=== PATIENT | female | born 1970 | race Caucasian/White ===

== ENCOUNTER 2017-05-23 19:30 | Inpatient (IN) | payer MEDICAID, OTHER ==
[~2017-05-23] VITALS: Ht 165.1 cm; Wt 112.5 kg
[~2017-05-23 19:30] MED LIST: ABIL5 PO; ATOM40CA PO; BUPR300T52 PO; HYDR50CA PO; TRAZ150T78 PO
[2017-05-23] MEDS ORDERED: ONDANSETRON HCL 4MG/2ML VIAL IV STA (23:06)
[2017-05-23] MEDS ORDERED: SODIUM CHLORIDE 0.9% 1,000 ML IV ONE (23:06)
[2017-05-23] MEDS ORDERED: MORPHINE SULFATE 4 MG/ML CPJ (NOT FOR IM USE) IV ONE (23:15)
[2017-05-23 23:51] LABS: BASOPHILS % 0.4 % (0.0-2.0); EOSINOPHILS % 0.5 % (0.0-5.0); HEMOGLOBIN. 11.2 g/dL (12.0-16.0); LYMPHOCYTES % 10.9 % (20.0-50.0); MEAN CORPUSCULAR VOLUME 77.8 fL (81.0-99.0); MONOCYTES % 6.3 % (2.0-8.0); NEUTROPHILS % 81.9 % (40.0-76.0); PLATELET 382 x1000/uL (130-400); RED CELL DISTRIBUTION WIDTH 15.9 % (11.6-14.6)
[2017-05-23 23:57] LABS: CHLORIDE 101 mEq/L (98-107)
[2017-05-24 00:03] LABS: PROTHROMBIN TIME 10.4 sec (9.4-11.6)
[2017-05-24 00:06] LABS: CARBON DIOXIDE 29 mEq/L (21-32)
[2017-05-24] MEDS ORDERED: CEFTRIAXONE 1 G PREMIX 50 ML IV ONE (00:15)
[2017-05-24] MEDS ORDERED: METRONIDAZOLE 500 MG PREMIX 100 ML IV ONE (00:15)
[2017-05-24] MEDS ORDERED: MORPHINE SULFATE 4 MG/ML CPJ (NOT FOR IM USE) IV ONE ×2 (01:15→02:45)
[2017-05-24 01:21] LABS: CLARITY URINE CLEAR (CLEAR); COLOR URINE YELLOW (YELLOW); KETONES URINE NEGATIVE (NEGATIVE); LEUKOCYTE ESTERASE URINE 1+ (NEGATIVE); NITRITE URINE NEGATIVE (NEGATIVE); OCCULT BLOOD URINE NEGATIVE (NEGATIVE); PH URINE >=9.0 (4.5-8.0); PROTEIN URINE 1+ (NEGATIVE); SPECIFIC GRAVITY URINE 1.018 (1.005-1.030)
[2017-05-24] MEDS ORDERED: KETOROLAC 30MG/ML VIAL IV ONE (02:45)
[2017-05-24] MEDS ORDERED: ONDANSETRON HCL 4MG/2ML VIAL IV PRN (02:45)
[2017-05-24] MEDS ORDERED: ACETAMINOPHEN 650MG SUPP PR PRN (02:45)
[2017-05-24] MEDS ORDERED: IPRATROPIUM/ALBUTEROL 0.5-3(2.5)MG/3ML NEB INH PRN (02:45)
[2017-05-24] MEDS ORDERED: DIPHENHYDRAMINE 50MG/ML VIAL IV PRN (02:45)
[2017-05-24] MEDS ORDERED: CLONIDINE 0.1MG TABLET PO PRN (02:45)
[2017-05-24] MEDS ORDERED: MORPHINE SULFATE 4 MG/ML CPJ (NOT FOR IM USE) IV PRN (02:45)
[2017-05-24 04:00] VITALS: BP 125/60
[2017-05-24] MEDS ORDERED: DEXT 5%/0.45% NACL 1000ML 1,000 ML IV SCH (04:30)
[2017-05-24 08:00] VITALS: BP 117/72
[2017-05-24] MEDS: HYDROMORPHONE HCL/PF 2MG/ML CPJ IV PRN ×3 (10:28→22:47)
[2017-05-24 12:00] VITALS: BP 127/73
[2017-05-24 12:32] LABS: BASOPHILS % 0.6 % (0.0-2.0); EOSINOPHILS % 1.4 % (0.0-5.0); HEMATOCRIT. 30.7 % (36.0-48.0); HEMOGLOBIN. 9.9 g/dL (12.0-16.0); MEAN CORPUSCULAR HEMOGLOBIN 25.2 pg (28.0-32.0); MONOCYTES % 7.2 % (2.0-8.0); NEUTROPHILS % 75.8 % (40.0-76.0); PLATELET 306 x1000/uL (130-400); RED BLOOD CELL COUNT 3.93 mill/uL (4.2-5.4); RED CELL DISTRIBUTION WIDTH 15.7 % (11.6-14.6)
[2017-05-24 13:06] LABS: CARBON DIOXIDE 28 mEq/L (21-32); CHLORIDE 103 mEq/L (98-107)
[2017-05-24] MEDS: ARIPIPRAZOLE 5MG TABLET PO SCH (14:10)
[2017-05-24 16:00] VITALS: BP 114/58
[2017-05-24] MEDS ORDERED: POTASSIUM CHLORIDE 20MEQ TABLET SR PO NR (16:45)
[2017-05-24 20:00] VITALS: BP 119/52
[2017-05-25] VITALS: BP 126/59
[2017-05-25 04:00] VITALS: BP 117/57
[2017-05-25] MEDS: HYDROMORPHONE HCL/PF 2MG/ML CPJ IV PRN ×2 (04:45→10:33)
[2017-05-25 06:00] LABS: BASOPHILS % 0.5 % (0.0-2.0); EOSINOPHILS % 2.3 % (0.0-5.0); HEMOGLOBIN. 10.7 g/dL (12.0-16.0); LYMPHOCYTES % 20.8 % (20.0-50.0); MEAN CORPUSCULAR HEMOGLOBIN 25.6 pg (28.0-32.0); MEAN CORPUSCULAR VOLUME 78.7 fL (81.0-99.0); MEAN PLATELET VOLUME 7.5 fl (7.4-10.4); MONOCYTES % 6.2 % (2.0-8.0); NEUTROPHILS % 70.2 % (40.0-76.0); PLATELET 330 x1000/uL (130-400); RED BLOOD CELL COUNT 4.19 mill/uL (4.2-5.4)
[2017-05-25 07:01] LABS: CHLORIDE 104 mEq/L (98-107)
[2017-05-25 07:09] LABS: CARBON DIOXIDE 25 mEq/L (21-32); HDL CHOLESTEROL 59 mg/dL (40-59); LDL CHOLESTEROL 74 mg/dL (5-100)
[2017-05-25 08:00] VITALS: BP 129/70
[2017-05-25] MEDS: ARIPIPRAZOLE 5MG TABLET PO SCH (09:30)
[2017-05-25 12:00] VITALS: BP 122/71
[2017-05-25 12:29] VITALS: BP 145/52
== END 2017-05-25 13:40 | disposition home or self-care (01) ==
LOC: ER 20:58 → EDBEDREQ 05-24 00:43 → 6EST 05-24 02:14 → EDBEDREQ 05-24 02:21 → EDBEDREQSVC 05-24 02:21 → SUPCPDRO 05-24 02:45 → ENRESERV 05-24 03:11 → 6EST 05-24 08:13
PROVIDERS: ADMIT Hospitalist; ATTEND Hospitalist
DX: K80.00 Calculus of gallbladder with acute cholecystitis without obstruction (principal); Z68.41 Body mass index [BMI] 40.0-44.9, adult; I10 Essential (primary) hypertension; J45.909 Unspecified asthma, uncomplicated; F31.9 Bipolar disorder, unspecified; Z82.49 Family history of ischemic heart disease and other diseases of the circulatory system; Z88.6 Allergy status to analgesic agent; Z79.899 Other long term (current) drug therapy; E66.01 Morbid (severe) obesity due to excess calories
CPT/HCPCS: 36415; 71045; 76705; 80053; 80061; 81001; 81025; 83690; 85025; 85610; 93970; 96361; 96365; 96367; 96375; 96376; 99285; J0696; J1170; J1885; J2270; J2405; J3490; J7030